=== PATIENT | male | born 1950 | race Caucasian/White ===

== ENCOUNTER 2021-05-25 13:02 | Outpatient (CLI) | payer MEDICARE | END 2021-05-25 13:03 | disposition home or self-care (01) | LOC: RAD 13:02 | PROVIDERS: ATTEND Internal Medicine Critical Care Medicine | DX: R06.00 Dyspnea, unspecified (principal); J98.4 Other disorders of lung | CPT/HCPCS: 71046 ==

== ENCOUNTER 2021-12-15 08:24 | Outpatient (CLI) | payer MEDICARE, OTHER | END 2021-12-15 08:25 | disposition home or self-care (01) | LOC: CT 08:24 | PROVIDERS: ATTEND Internal Medicine Critical Care Medicine | DX: R05.8 Other specified cough (principal); J84.10 Pulmonary fibrosis, unspecified | CPT/HCPCS: 71250 ==